=== PATIENT | female | born 1990 | race Caucasian/White ===

== ENCOUNTER → 2016-08-02 | Outpatient (CLI) | payer OTHER ==
[2016-08-02 08:39] LABS: AUTOMATED NEUTROPHIL # 2.5 TH/MM3 (1.8-7.7); BASOPHIL % 0.5 % (0.0-2.0); EOSINOPHIL # 0.3 TH/MM3 (0-0.4); EOSINOPHIL % 5.6 % (0.0-4.0); HEMATOCRIT 37.7 % (35.0-46.0); HEMO FLAGS DIFF FINAL; LYMPH % 33.9 % (9.0-44.0); LYMPHOCYTE # 1.8 TH/MM3 (1.0-4.8); MEAN CORPUSCULAR HGB CONC 31.4 % (32.0-36.0); MONO % 13.9 % (0.0-8.0); NEUT % 46.1 % (16.0-70.0); PLATELET COUNT 255 TH/MM3 (150-450); RED BLOOD COUNT 4.39 MIL/MM3 (4.00-5.30); RED CELL DISTRIBUTION WIDTH 16.3 % (11.6-17.2); WHITE BLOOD COUNT 5.4 TH/MM3 (4.0-11.0)
[2016-08-02 09:07] LABS: ANION GAP 9 MEQ/L (5-15); AST (GOT) 17 U/L (15-37); BICARBONATE 27.5 MEQ/L (21.0-32.0); BLOOD UREA NITROGEN 15 MG/DL (7-18); CHLORIDE 104 MEQ/L (98-107); GLOMERULAR FILTRATION RATE 93 ML/MIN (>89); POTASSIUM 4.5 MEQ/L (3.5-5.1); SODIUM (NA) 140 MEQ/L (136-145)
[2016-08-02 09:09] LABS: GLUCOSE,FASTING 91 MG/DL (74-99)
[2016-08-02 09:15] LABS: ALKALINE PHOSPHATASE 71 U/L (45-117); ALT (GPT) 23 U/L (10-53); TOTAL BILIRUBIN ADULT 0.7 MG/DL (0.2-1.0)
[2016-08-03 01:06] LABS: EBV VCA IgM Negative (Negative)
== END ==
LOC: CLAB 08:09
PROVIDERS: ATTEND Family Medicine
DX: R53.83 Other fatigue (principal); D50.8 Other iron deficiency anemias
CPT/HCPCS: 36415; 80053; 85025; 86664; 86665

== ENCOUNTER → 2016-11-08 | Outpatient (CLI) | payer OTHER ==
[2016-11-13 03:49] LABS: A FUMIGATUS CLASS 0; A TENUIS LESS THAN 0 kU/L; A TENUIS CLASS 0; ALMOND LESS THAN 0.10 kU/L; ALMOND CLASS 0; BAHIA GRASS LESS THAN 0.10 kU/L; BAHIA GRASS CLASS 0; BERMUDA GRASS LESS THAN 0.10 kU/L; BERMUDA GRASS CLASS 0; BIRCH CLASS 0; C HERBARUM LESS THAN 0.10 kU/L; C HERBARUM CLASS 0; CASHEW CLASS 0; CAT DANDER LESS THAN 0.10 kU/L; CAT DANDER CLASS 0; COCKROACH LESS THAN 0.10 kU/L; COCKROACH CLASS 0; CODFISH CLASS 0; COMMON PIGWEED LESS THAN 0.10 kU/L; COMMON PIGWEED CLASS 0; COMMON RAGWEED LESS THAN 0.10 kU/L; COMMON RAGWEED CLASS 0; COWS MILK CLASS 0; COWS MILK IGE LESS THAN 0.10 kU/L; D FARINAE LESS THAN 0.10 kU/L; D FARINAE CLASS 0; D PTERONYSSINUS LESS THAN 0.10 kU/L; D PTERONYSSINUS CLASS 0; DOG DANDER LESS THAN 0.10 kU/L; DOG DANDER CLASS 0; EGG WHITE LESS THAN 0.10 kU/L; EGG WHITE CLASS 0; ELM CLASS 0; HAZELNUT LESS THAN 0.10 kU/L; HAZELNUT CLASS 0; MAPLE (BOX ELDER) LESS THAN 0.10 kU/L; MAPLE (BOX ELDER) CLASS 0; MOUNTAIN CEDAR LESS THAN 0.10 kU/L; MOUNTAIN CEDAR CLASS 0; MOUSE CLASS 0; MOUSE URINE PROTEINS LESS THAN 0.10 kU/L; NETTLE LESS THAN 0.10 kU/L; NETTLE CLASS 0; OAK WHITE LESS THAN 0.10 kU/L; OAK WHITE CLASS 0; P NOTATUM LESS THAN 0.10 kU/L; P NOTATUM CLASS 0; PEANUT LESS THAN 0.10 kU/L; PEANUT CLASS 0; PECAN TREE CLASS 0; SALMON LESS THAN 0.10 kU/L; SALMON CLASS 0; SCALLOP LESS THAN 0.10 kU/L; SCALLOP CLASS 0; SESAME SEED LESS THAN 0.10 kU/L; SESAME SEED CLASS 0; SHEEP SORREL LESS THAN 0.10 kU/L; SHEEP SORREL CLASS 0; SHRIMP LESS THAN 0.10 kU/L; SHRIMP CLASS 0; SOYBEAN LESS THAN 0.10 kU/L; SOYBEAN CLASS 0; TIMOTHY GRASS LESS THAN 0.10 kU/L; TIMOTHY GRASS CLASS 0; TUNA LESS THAN 0.10 kU/L; TUNA CLASS 0; WALNUT LESS THAN 0.10 kU/L; WALNUT CLASS 0; WHEAT LESS THAN 0.10 kU/L; WHEAT CLASS 0
== END ==
LOC: CLAB 14:33
PROVIDERS: ATTEND Family Medicine
DX: J02.9 Acute pharyngitis, unspecified (principal); J32.0 Chronic maxillary sinusitis; J30.89 Other allergic rhinitis
CPT/HCPCS: 36415; 82785; 86003

== ENCOUNTER → 2017-04-22 | Outpatient (CLI) | payer OTHER ==
[2017-04-22 12:15] LABS: HEMATOCRIT 37.3 % (35.0-46.0); HEMOGLOBIN 12.3 GM/DL (11.6-15.3); MEAN CELL VOLUME 85.6 FL (80.0-100.0); MEAN CORPUSCULAR HEMOGLOBIN 28.3 PG (27.0-34.0); MEAN PLATELET VOLUME 9.1 FL (7.0-11.0); PLATELET COUNT 256 TH/MM3 (150-450); RED BLOOD COUNT 4.36 MIL/MM3 (4.00-5.30); RED CELL DISTRIBUTION WIDTH 15.4 % (11.6-17.2); WHITE BLOOD COUNT 5.2 TH/MM3 (4.0-11.0)
[2017-04-22 12:36] LABS: WESTERGREN SEDIMENTATION RATE 6 mm/hr (0-20)
[2017-04-22 12:44] LABS: BICARBONATE 26.4 MEQ/L (21.0-32.0); BLOOD UREA NITROGEN 9 MG/DL (7-18); C-REACTIVE PROTEIN LESS THAN 0.29 MG/DL (0.00-0.30); CALCIUM 8.5 MG/DL (8.5-10.1); CHLORIDE 108 MEQ/L (98-107); CREATININE 0.83 MG/DL (0.50-1.00); GLOMERULAR FILTRATION RATE 81 ML/MIN (>89); GLUCOSE,FASTING 87 MG/DL (74-99); SODIUM (NA) 139 MEQ/L (136-145)
[2017-04-23 01:54] LABS: EBV VCA IgM Negative (Negative)
== END ==
LOC: CLAB 11:51
PROVIDERS: ATTEND Neuromusculoskeletal Medicine & OMM
DX: J06.9 Acute upper respiratory infection, unspecified (principal)
CPT/HCPCS: 36415; 80048; 82784; 82787; 85027; 85652; 86140; 86664; 86665